=== PATIENT | female | born 1990 | race Caucasian/White ===

== ENCOUNTER 2018-09-13 05:48 | Emergency (ER) | payer SELFPAY ==
[~2018-09-13] VITALS: Ht 162.6 cm; Wt 60.4 kg
[2018-09-13 05:53] VITALS: Ht 162.6 cm; Wt 60.4 kg
[2018-09-13] MEDS ORDERED: SOD CHLORIDE 0.9% 1,000 ML IV STA (06:21)
[2018-09-13] MEDS ORDERED: IBUPROFEN 800 MG TAB PO ONE (06:30)
[2018-09-13] MEDS ORDERED: ORTNOV PO (07:30)
[2018-09-13] MEDS ORDERED: CIPR500T4 PO (07:30)
[2018-09-13] MEDS ORDERED: IBUP-1542 PO (07:30)
[2018-09-13 07:37] VITALS: BP 120/60; PULSE 65; RESP 18
--- NOTE | 2018-09-13 07:54 | ERD ---
ER Documentation Chief Complaint Chief Complaint RT FLANK PAIN X 2 WEEKS; DYSURIA HPI Patient is a 28-year-old female with no medical problems who presents with right-sided flank pain. The patient said that 2 weeks ago she had a UTI and was given an unknown antibiotic. She missed her period for the past 2 months as well but home test have been negative. She denies fevers. She does have burning with urination. Upon review of old medical records this is the patient's first visit to the emergency department. She does not currently have a primary doctor. ROS All systems reviewed and are negative except as per history of present illness. Medications Home Meds Active Scripts Norethindrone-Ethinyl Estradiol (Ortho-Novum ()) 0.035-1 Mg Tablet, 1 TAB PO DAILY, #28 TAB Prov:JACINTA CALDERON MD 09/13/18 Ibuprofen* (Motrin*) 600 Mg Tab, 600 MG PO Q6H PRN for PAIN AND OR ELEVATED TEMP, #30 TAB Prov:JACINTA CALDERON MD 09/13/18 Ciprofloxacin Hcl* (Ciprofloxacin Hcl*) 500 Mg Tablet, 500 MG PO BID for 7 Days, TAB Prov:JACINTA CALDERON MD 09/13/18 Allergies Allergies: Coded Allergies: Penicillins (Verified Allergy, Unknown, 09/13/18) PMhx/Soc Medical and Surgical Hx: pt denies Medical Hx FmHx Family History: No diabetes Physical Exam Vitals Vital Signs Date Temp Pulse Resp B/P (MAP) Pulse Ox O2 O2 Flow FiO2 Time Delivery Rate 09/13/18 98.1 65 18 120/60 100 Room Air 07:37 (80) 09/13/18 36.1 06:43 09/13/18 97.0 74 18 152/89 100 05:53 (110) Physical Exam Const: No acute distress Head: Atraumatic Eyes: Normal Conjunctiva ENT: Normal External Ears, Nose and Mouth. Neck: Full range of motion. No meningismus. Resp: Clear to auscultation bilaterally Cardio: Regular rate and rhythm, no murmurs Abd: Soft, non tender, non distended. Normal bowel sounds Skin: No petechiae or rashes Back: No midline or flank tenderness Ext: No cyanosis, or edema Neur: Awake and alert Psych: Normal Mood and Affect Result Diagram: 09/13/1863209/13/1833 Results 24 hrs Laboratory Tests Test 09/13/18 06:24 09/13/18 06:26 09/13/18 06:33 09/13/18 07:00 Bedside Urine pH (LAB) 5.5 6.0 Bedside Urine Protein Negative 2+ (LAB) Bedside Urine Glucose Negative Negative (UA) Bedside Urine Ketones Trace Negative (LAB) Bedside Urine Blood Negative 3+ Bedside Urine Nitrite Negative Negative (LAB) Bedside Urine 1+ 3+ Leukocyte Esterase (L POC Beta HCG, NEGATIVE Qualitative White Blood Count 5.5 10^3/ul Red Blood Count 4.47 10^6/ul Hemoglobin 11.1 g/dl Hematocrit 35.6 % Mean Corpuscular 79.6 fl Volume Mean Corpuscular 24.8 pg Hemoglobin Mean Corpuscular 31.2 g/dl Hemoglobin Concent Red Cell Distribution 15.5 % Width Platelet Count 397 10^3/UL Mean Platelet Volume 10.6 fl Immature Granulocytes 0.200 % % Neutrophils % 45.1 % Lymphocytes % 41.2 % Monocytes % 9.3 % Eosinophils % 3.5 % Basophils % 0.7 % Nucleated Red Blood 0.0 /100WBC Cells % Immature Granulocytes 0.010 10^3/ul # Neutrophils # 2.5 10^3/ul Lymphocytes # 2.3 10^3/ul Monocytes # 0.5 10^3/ul Eosinophils # 0.2 10^3/ul Basophils # 0.0 10^3/ul Nucleated Red Blood 0.0 10^3/ul Cells # Sodium Level 141 mmol/L Potassium Level 3.5 mmol/L Chloride Level 106 mmol/L Carbon Dioxide Level 26 mmol/L Anion Gap 9 Blood Urea Nitrogen 18 mg/dl Creatinine 0.63 mg/dl Est Glomerular Filtrat > 60 mL/min Rate mL/min Glucose Level 95 mg/dl Calcium Level 9.2 mg/dl Total Bilirubin 0.3 mg/dl Direct Bilirubin 0.00 mg/dl Indirect Bilirubin 0.3 mg/dl Aspartate Amino 38 IU/L Transf (AST/SGOT) Alanine 42 IU/L Aminotransferase (ALT/ SGPT) Alkaline Phosphatase 81 IU/L Total Protein 8.0 g/dl Albumin 4.5 g/dl Globulin 3.50 g/dl Albumin/Globulin Ratio 1.28 Current Medications Medications Dose Sig/Mushtaq Start Time Status Last (Trade) Ordered Route PRN Stop Time Admin Dose Reason Admin Ibuprofen 800 mg ONCE ONCE 09/13/18 DC 09/13/18 (Motrin) PO 06:30 09/13/18 06:43 06:31 Sodium 1,000 ml @ Q1H STAT 09/13/18 DC 09/13/18 Chloride 1,000 mls/hr IV 06:21 09/13/18 06:43 07:20 Procedures/MDM Urine dip shows positive leukocyte esterase consistent with infection. Urine test is negative. Patient is a 28-year-old female who presents with what sounds like pyelonephritis. I doubt sepsis at this time. I doubt other serious etiology and I think the risk of doing a CT scan of the abdomen and pelvis outweigh the benefits. The patient is otherwise well-appearing with stable vital signs. The patient will be discharged but will need to follow-up closely with the local clinics within 1 week. She can return for any worsening symptoms. I doubt ap pendicitis, cholecystitis, pancreatitis, or bowel obstruction. She has had her gallbladder removed in the past. Departure Diagnosis: Primary Impression: Pyelonephritis Additional Impression: Flank pain Condition: Fair Patient Instructions: Pyelonephritis, Female (Adult) Referrals: [facility] YOU HAVE RECEIVED A MEDICAL SCREENING EXAM AND THE RESULTS INDICATE THAT YOU DO NOT HAVE A CONDITION THAT REQUIRES URGENT TREATMENT IN THE EMERGENCY DEPARTMENT. FURTHER EVALUATION AND TREATMENT OF YOUR CONDITION CAN WAIT UNTIL YOU ARE SEEN IN YOUR DOCTORS OFFICE WITHIN THE NEXT 1-2 DAYS. IT IS YOUR RESPONSIBILITY TO MAKE AN APPOINTMENT FOR FOLOW-UP CARE. IF YOU HAVE A PRIMARY DOCTOR --you should call your primary doctor and schedule an appointment IF YOU DO NOT HAVE A PRIMARY DOCTOR YOU CAN CALL OUR PHYSICIAN REFERRAL HOTLINE AT IF YOU CAN NOT AFFORD TO SEE A PHYSICIAN YOU CAN CHOSE FROM THE FOLLOWING [facility] [address] [facility]. [facility] [address] [facility] [address] [facility]. [facility] [address] [facility]. [facility] [address] [facility]. [facility]. [address] Additional Instructions: Call your primary care doctor TOMORROW for an appointment during the next 1 WEEK.Tell the switchboard inspector that you were referred from this facility.See the doctor sooner or return here if your condition worsens before your appointment time. JACINTA CALDERON MD Sep 13, 2018 07:54
== END 2018-09-13 07:37 | disposition home or self-care (01) ==
LOC: E/R 05:48
DX: N12 Tubulo-interstitial nephritis, not specified as acute or chronic (principal)
CPT/HCPCS: 80053; 81003; 81025; 85025; 99284; J7030

== ENCOUNTER 2018-09-21 07:18 | Emergency (ER) | payer SELFPAY ==
[~2018-09-21] VITALS: Ht 162.6 cm; Wt 58.0 kg
[~2018-09-21 07:18] MED LIST: CIPR500T4 PO; IBUP-1542 PO; ORTNOV PO
[2018-09-21 07:22] VITALS: RESP 18; Ht 162.6 cm; Wt 58.0 kg
[2018-09-21] MEDS ORDERED: SOD CHLORIDE 0.9% 1,000 ML IV STA (08:35)
[2018-09-21] MEDS ORDERED: MECLIZINE 12.5 MG TAB PO ONE (09:00)
[2018-09-21 09:11] VITALS: BP 134/80; PULSE 80
[2018-09-21] MEDS ORDERED: ONDANSETRON 4 MG INJ IV STA (09:11)
--- NOTE | 2018-09-21 09:15 | ERD ---
ER Documentation Chief Complaint Chief Complaint VOMITING , DIZZINESS , ONSET LAST NIGHT HPI This is a 28-year-old female who presents ED with complaints of vomiting and dizziness since last night. Patient admits to having multiple episodes of nonbilious nonbloody vomiting. Patient states that the dizziness is worsened by head movement and she describes the dizziness as the room spinning. Denies any fall or injury. No history of vertigo. Patient denies any weakness, confusion, fever, chills blurry vision, changes in vision, headache, worst headache of life, dysuria, hematuria, abdominal pain, hematemesis, melena, hematochezia,. Last menstrual period 09-19-18. Last menstrual period 09-19-18. ROS All systems reviewed and are negative except as per history of present illness. Medications Home Meds Active Scripts Ibuprofen* (Motrin*) 600 Mg Tab, 600 MG PO Q6, #30 TAB Prov:OLI COTO PA-C 09/21/18 Ondansetron (Ondansetron Odt) 4 Mg Tab.rapdis, 4 MG PO Q6H PRN for NAUSEA AND/OR VOMITING, #10 TAB Prov:OLI COTO PA-C 09/21/18 Meclizine Hcl* (Antivert*) 12.5 Mg Tab, 12.5 MG PO Q6H PRN for DIZZINESS, #20 TAB Prov:OLI COTO PA-C 09/21/18 Norethindrone-Ethinyl Estradiol (Ortho-Novum ()) 0.035-1 Mg Tablet, 1 TAB PO DAILY, #28 TAB Prov:JACINTA CALDERON MD 09/13/18 Ibuprofen* (Motrin*) 600 Mg Tab, 600 MG PO Q6H PRN for PAIN AND OR ELEVATED TEMP, #30 TAB Prov:JACINTA CALDERON MD 09/13/18 Ciprofloxacin Hcl* (Ciprofloxacin Hcl*) 500 Mg Tablet, 500 MG PO BID for 7 Days, TAB Prov:JACINTA CALDERON MD 09/13/18 Discontinued Scripts Sulfamethoxazole/Trimethoprim* (Bactrim Ds* Tablet) 1 Each Tablet, 1 TAB PO BID, #14 TAB Prov:OLI COTO PA-C 09/21/18 Allergies Allergies: Coded Allergies: Penicillins (Verified Allergy, Unknown, 09/21/18) PMhx/Soc History of Surgery: Yes (gall bladder) Hx Alcohol Use: No Hx Substance Use: No Hx Tobacco Use: No Smoking Status: Never smoker FmHx Family History: No diabetes Physical Exam Vitals Vital Signs Date Temp Pulse Resp B/P (MAP) Pulse Ox O2 O2 Flow FiO2 Time Delivery Rate 09/21/18 80 134/80 09:11 (98) 09/21/18 71 116/80 09:11 (92) 09/21/18 69 111/76 09:11 (88) 09/21/18 98.1 87 18 137/76 99 07:22 (96) Physical Exam Physical Exam Vitals signs: Reviewed by me. General: Well developed, well nourished, in no acute distress. Patient is awake and alert. Head: Normocephalic, atraumatic. Eyes: Normal conjunctiva, Pupils PERRLA, EOM intact grossly ENT: Pharynx is clear, Moist mucous membranes, external ears, nose and mouth normal Neck: Supple, no masses, lymphadenopathy or JVD Respiratory: Clear to auscultation bilaterally with no wheezing, rhonchi, rales, no distress Cardiovascular: RRR, no murmurs, rubs, or gallops Abdominal: Soft, non-tender, non-distended, no peritoneal signs Neurologic: Alert and oriented, moving all extremities, normal speech, no focal weakness, no cerebellar signs. Normal mentation Cranial nerves II through XII intact bilaterally Neuro: M/S: Alert and oriented x 3 Face: EOMI, face and pharynx with normal sensation and function Motor: Normal strength throughout Sensation: Normal sensation throughout Speech: Normal Cerebel: Normal coordination Normal gait Normal finger to nose DTR: 2+ and symmetric upper/lower extremities Skin: warm and dry, No rash Psych: Normal mood Result Diagram: 09/21/18 0846 09/21/18 0846 Results 24 hrs Laboratory Tests Test 09/21/18 08:45 09/21/18 08:46 09/21/18 08:53 Prothrombin Time 13.0 Sec Prothrombin Time Ratio 1.0 INR International 0.97 Normalized Ratio Activated Partial Thromboplast 30.3 Sec Time White Blood Count 7.4 10^3/ul Red Blood Count 5.06 10^6/ul Hemoglobin 12.4 g/dl Hematocrit 38.8 % Mean Corpuscular Volume 76.7 fl Mean Corpuscular Hemoglobin 24.5 pg Mean Corpuscular 32.0 g/dl Hemoglobin Concent Red Cell Distribution Width 15.2 % Platelet Count 454 10^3/UL Mean Platelet Volume 10.7 fl Immature Granulocytes % 0.500 % Neutrophils % 78.3 % Lymphocytes % 10.9 % Monocytes % 9.8 % Eosinophils % 0.0 % Basophils % 0.5 % Nucleated Red Blood Cells % 0.0 /100WBC Immature Granulocytes # 0.040 10^3/ul Neutrophils # 5.8 10^3/ul Lymphocytes # 0.8 10^3/ul Monocytes # 0.7 10^3/ul Eosinophils # 0.0 10^3/ul Basophils # 0.0 10^3/ul Nucleated Red Blood Cells # 0.0 10^3/ul Urine Color YELLOW Urine Clarity SLIGHTLY CLOUDY Urine pH 8.0 Urine Specific [place] 1.010 Urine Ketones TRACE mg/dL Urine Nitrite NEGATIVE mg/dL Urine Bilirubin NEGATIVE mg/dL Urine Urobilinogen NEGATIVE mg/dL Urine Leukocyte Esterase NEGATIVE Mary/ul Urine Microscopic RBC 115 /HPF Urine Microscopic WBC 13 /HPF Urine Squamous Epithelial Cells FEW /HPF Urine Amorphous Crystals FEW /HPF Urine Bacteria FEW /HPF Urine Hemoglobin 3+ mg/dL Urine Glucose NEGATIVE mg/dL Urine Total Protein 1+ mg/dl Sodium Level 143 mmol/L Potassium Level 3.6 mmol/L Chloride Level 103 mmol/L Carbon Dioxide Level 25 mmol/L Anion Gap 15 Blood Urea Nitrogen 19 mg/dl Creatinine 1.62 mg/dl Est Glomerular Filtrat 38 mL/min Rate mL/min Glucose Level 114 mg/dl Calcium Level 10.1 mg/dl POC Beta HCG, Qualitative NEGATIVE Current Medications Medications Dose Sig/Mushtaq Start Time Status Last (Trade) Ordered Route PRN Stop Time Admin Dose Reason Admin Sodium 1,000 ml @ Q1H STAT 09/21/18 DC 09/21/18 Chloride 1,000 mls/hr IV 08:35 08:57 09/21/18 09:34 Meclizine 25 mg ONCE ONCE 09/21/18 DC 09/21/18 HCl PO 09:00 09:39 (Antivert) 09/21/18 09:01 Ondansetron 4 mg ONCE STAT 09/21/18 DC 09/21/18 HCl (Zofran IV 09:11 09:16 Inj) 3/12/19 09:13 Procedures/MDM LAB INTERPRETATION: CBC shows no evidence of hemorrhage or infection, mildly elevated platelet count of 454, mildly elevated neutrophil percentage 78.3 Chemistry remarkable for a mildly elevated anion gap 15, creatinine 1.62, GFR 38 Coagulation study showed no concerning coagulopathy Urinalysis remarkable for 13 WBC, 115 RBC, no leukocyte esterase ER COURSE: The patient was given ZOFRAN, MECLIZINE, NS The medication was well tolerated and the patient reports improvement in symptoms. The patient was stable throughout ED course. I kept the patient and/or family informed of laboratory and diagnostic imaging results throughout the emergency room course. The patient was promptly evaluated and a treatment plan was devised based on H&P and other data. This plan was discussed with the patient who agreed and had no further questions or concerns prior to discharge. MEDICAL DECISION MAKING: This is a 28-year-old female presents ED with complaints of nausea vomiting and dizziness since last night. Differential diagnosis include but are not limited to central causes such as cerebellar infarct, cerebellar pallor hemorrhage, cerebellar tumor, acoustic neuroma, peripheral causes such as benign positional vertigo, labyrinthitis, medication, Mnire's disease. This is likely benign positional vertigo. Patient has no neurological deficits. Patient was given meclizine, Zofran and IV normal saline in the ED today and reports resolution of symptoms. Blood work was remarkable for an elevated creatinine and decreased GFR. I discussed the findings with my overseeing physician Dr. Thakur and he advises that patient can be discharged and she needs to have repeat labs in 1 week. This was discussed with patient. Urinalysis does have 13 WBCs, but referring to patient record she was recently seen here and treated for pyelonephritis. Patient is finishing her last dose of ciprofloxacin. We will send urine for culture. Advised patient to continue antibiotic as prescribed by Dr. calderon.. Patient's vitals are stable and can be managed with close out patient follow up. Advised to follow up with primary care in the next 48 hours. Return to emergency department with any any worsening symptoms DISPOSITION PLAN: We discussed follow up with the patient's primary care doctor within 24 to 48 hours. Patient counseled regarding my diagnostic impression and care plan. Prior to discharge all questions answered. Pt agrees with treatment plan and understands strict return precautions. Precautionary instructions provided including instructions to return to the ER if not improving or for any worsening or changing symptoms or concerns. SPECIALIST FOLLOW UP RECOMMENDED: None Patient has been advised to follow up with primary care in 1-2 days. Disclaimer: Inadvertent spelling and grammatical errors are likely due to EHR/dictation software use and do not reflect on the overall quality of patient care. Also, please note that the electronic time recorded on this note does not necessarily reflect the actual time of the patient encounter. Departure Diagnosis: Primary Impression: Peripheral vertigo Laterality: unspecified laterality Qualified Codes: H81.399 - Other peripheral vertigo, unspecified ear Additional Impression: Elevated serum creatinine Condition: Stable Patient Instructions: Benign Positional Vertigo, Creatinine (Blood), Managing Dizziness (Vertigo) with Medications, Understanding Urinary Tract Infections (UTIs), Vertigo, Unspecified Referrals: [facility] Additional Instructions: Patient advised to return to the ED immediately for new or worsening symptoms. Patient advised to follow up with primary care provider in the next 24-48 hours. Patient verbalized understanding and agrees with treatment plan and course of action. If patient has no primary care they may follow up with one of the community clinics listed on the following page or one of the options listed below [facility] + [facility] [address] [place] [id number] or [place] [address] [place] [address] or [facility] [address] [place] [address] OLI COTO PA-C Sep 21, 2018 09:15
[2018-09-21] MEDS ORDERED: IBUP-1542 PO (10:31)
[2018-09-21] MEDS ORDERED: MECL12.574 PO (10:31)
[2018-09-21] MEDS ORDERED: SULF1TAB31 PO (10:31)
[2018-09-21] MEDS ORDERED: ONDA4TAB14 PO (10:31)
== END 2018-09-21 11:04 | disposition home or self-care (01) ==
LOC: FTE 07:18
DX: H81.399 Other peripheral vertigo, unspecified ear (principal); R79.89 Other specified abnormal findings of blood chemistry
CPT/HCPCS: 80048; 81001; 81025; 85025; 85610; 85730; 87086; J2405; J7030; 36415; 96374